=== PATIENT | female | born 1975 | race Caucasian/White ===

== ENCOUNTER 2017-04-01 23:51 | Emergency (ER) | END 2017-04-02 05:10 | disposition home or self-care (01) ==

== ENCOUNTER 2017-04-24 12:54 | Emergency (ER) | END 2017-04-24 20:40 | disposition home or self-care (01) ==

== ENCOUNTER 2017-08-02 17:16 | Emergency (ER) | END 2017-08-02 18:52 | disposition home or self-care (01) ==

== ENCOUNTER 2018-04-29 02:54 | Emergency (ER) | payer OTHER ==
[~2018-04-29] VITALS: Wt 103.2 kg
[~2018-04-29 02:54] MED LIST: ALBU8.5H8 INH; AZIT250T PO; BENZ-6 PO; CETI10CA PO; FERR27TA; FERR27TA PO; FLUT9.9S NASAL; IBUP-1542 PO; IBUP-1561 PO; PRED20TA PO; PREN1TAB49; PREN1TAB49 PO; PROM5SYR2 PO; PROP50TA2 PO
[2018-04-29] MEDS ORDERED: KETOROLAC 30 MG INJ IM STA (04:49)
[2018-04-29] MEDS ORDERED: predniSONE 20 MG TAB PO ONE (05:00)
[2018-04-29] MEDS ORDERED: SOD CHLORIDE 0.9% 1,000 ML IV STA ×2 (06:02→07:35)
[2018-04-29] MEDS ORDERED: MTF1000T PO ×2 (06:09→08:38)
[2018-04-29] MEDS ORDERED: INSULIN LISPRO 100 UNIT/ML VIAL SC ONE (06:30)
[2018-04-29] MEDS ORDERED: NYST1000 PO (08:37)
[2018-04-29] MEDS ORDERED: FLUCONAZOLE 150 MG TAB PO ONE (09:00)
[2018-04-29 09:16] VITALS: BP 112/57; PULSE 62; RESP 19
--- NOTE | 2018-04-30 19:04 | ERD ---
ER Documentation Chief Complaint Chief Complaint COUGH, ST, WEAKNESS X'S 2 WEEKS HPI 42-year-old female presents with cough, sore throat, and weakness for the last 2 weeks. Describes the cough is nonproductive. Denies any fevers, trismus, drooling, inability to swallow stridor,, difficulty breathing. Denies nausea, vomiting, diarrhea, dysuria. States that she has had some polyuria and polydipsia. Denies any treatments. Denies past medical history. Denies allergies. Denies medications. Denies surgeries. Denies alcohol, tobacco, drug use. Up to date on vaccines. ROS All systems reviewed and are negative except as per history of present illness. Medications Home Meds Active Scripts Metformin* (Glucophage*) 1,000 Mg Tablet, 1000 MG PO BID for diabetes, #60 TAB Prov:SUMMER YOUNG PA-C 04/29/18 Nystatin (Nystatin) 100,000 Unit/1 Ml Oral.susp, 2 ML PO QID, #60 ML Prov:SUMMER YOUNG PA-C 04/29/18 Promethazine HCl/Codeine (Prometh-Codein 6.25-10 mg/5 ml) 5 Ml Syrup, 5 ML PO QHS for 5 Days, #120 ML Prov:BLANE FOSTER MD 08/02/17 Ibuprofen* (Motrin*) 400 Mg Tab, 400 MG PO Q8 for 5 Days, #15 TAB Prov:BLANE FOSTER MD 08/02/17 Azithromycin* (Zithromax*) 250 Mg Tablet, 250 MG PO .ShadyPACK DIRECTED, #6 TAB TAKE 500 MG (2 TABS) THE FIRST DAY THEN 250 MG (1 TAB) DAYS 2-5 Prov:BLANE FOSTER MD 08/02/17 Fluticasone Propionate (Flonase Allergy Relief) 9.9 Ml [place].susp, 1 SPRAY NASAL DAILY, #1 BOTTLE TO EACH NOSTRIL Prov:DOUG HIGGINS PA-C 04/24/17 Prednisone* (Prednisone*) 20 Mg Tab, 40 MG PO DAILY for 4 Days, TAB Prov:DOUG HIGGINS PA-C 04/24/17 Benzonatate* (Tessalon Perle*) 100 Mg Capsule, 100 MG PO Q8H PRN for COUGH, #20 CAP Prov:DOUG HIGGINS PA-C 04/24/17 Azithromycin* (Zithromax*) 250 Mg Tablet, 250 MG PO .ShadyPACK DIRECTED, #6 TAB TAKE 500 MG (2 TABS) THE FIRST DAY THEN 250 MG (1 TAB) DAYS 2-5 Prov:SCHUYLER HAWLEY [employer] 04/02/17 Albuterol Sulfate* (Proair HFA*) 8.5 Gm Hfa.aer.ad, 2 PUFF INH Q4H PRN for WH EEZING AND SOB, #1 INHALER Prov:SCHUYLER HAWLEY [employer] 04/02/17 Cetirizine Hcl* (Zyrtec*) 10 Mg Capsule, 10 MG PO DAILY, #30 TAB.CHEW Prov:SCHUYLER HAWLEY [employer] 04/02/17 Ibuprofen* (Motrin*) 600 Mg Tab, 600 MG PO Q6H PRN for PAIN AND OR ELEVATED TEMP, #30 TAB Prov:SCHUYLER HAWLEY [employer] 04/02/17 Benzonatate* (Tessalon Perle*) 100 Mg Capsule, 100 MG PO Q8H PRN for COUGH, #20 CAP Prov:SCHUYLER HAWLEY [employer] 04/02/17 Reported Medications Vits W-Ca,Fe,Fa(<1MG) () 1 Tab Tablet, 1 04/26/11 Ferrous Sulfate (Iron) 1 Tab Tablet, 1 04/26/11 Ferrous Sulfate (Iron) 1 Tab Tablet, 1 TAB PO 04/26/11 Propylthiouracil* (Propylthiouracil*) 50 Mg Tablet, 50 MG PO 04/26/11 Vits W-Ca,Fe,Fa(<1MG) () 1 Tab Tablet, 1 TAB PO 04/26/11 Allergies Allergies: Coded Allergies: No Known Drug Allergies (Verified Allergy, Unknown, 04/24/17) PMhx/Soc History of Surgery: Yes (cholecystectomy) Anesthesia Reaction: No Hx Neurological Disorder: No Hx Respiratory Disorders: No Hx Cardiac Disorders: No Hx Psychiatric Problems: No Hx Miscellaneous Medical Probl: Yes (thyroid) Hx Alcohol Use: No Hx Substance Use: No Hx Tobacco Use: No Smoking Status: Never smoker FmHx Family History: No diabetes, No coronary disease, No other Physical Exam Vitals Vital Signs Date Temp Pulse Resp B/P (MAP) Pulse Ox O2 O2 Flow FiO2 Time Delivery Rate 04/29/18 97.8 62 19 112/57 96 Room Air 09:16 (75) 04/29/18 98.8 103 18 139/89 95 02:58 (106) Physical Exam Const: No acute distress Head: Atraumatic Eyes: Normal Conjunctiva ENT: Normal External Ears, Nose and Mouth. Tonsils are edematous as well and erythematous but airways patent and clear. No exudates are noted. Tongue is moderately edematous. Neck: Full range of motion. No meningismus. Resp: Clear to auscultation bilaterally Cardio: Regular rate and rhythm, no murmurs Abd: Soft, non tender, non distended. Normal bowel sounds Skin: No petechiae or rashes Back: No midline or flank tenderness Ext: No cyanosis, or edema Neur: Awake and alert Psych: Normal Mood and Affect Result Diagram: 04/29/18 0503 04/29/18 0503 Results 24 hrs Laboratory Tests Test 04/29/18 05:03 04/29/18 05:08 04/29/18 06:29 04/29/18 07:34 White Blood Count 5.8 10^3/ul Red Blood Count 4.99 10^6/ul Hemoglobin 14.3 g/dl Hematocrit 42.7 % Mean Corpuscular 85.6 fl Volume Mean Corpuscular 28.7 pg Hemoglobin Mean Corpuscular 33.5 g/dl Hemoglobin Concent Red Cell 12.3 % Distribution Width Platelet Count 274 10^3/UL Mean Platelet 9.9 fl Volume Immature 0.200 % Granulocytes % Neutrophils % 43.4 % Lymphocytes % 41.0 % Monocytes % 12.4 % Eosinophils % 1.5 % Basophils % 1.5 % Nucleated Red Blood 0.0 /100WBC Cells % Immature 0.010 10^3/ul Granulocytes # Neutrophils # 2.5 10^3/ul Lymphocytes # 2.4 10^3/ul Monocytes # 0.7 10^3/ul Eosinophils # 0.1 10^3/ul Basophils # 0.1 10^3/ul Nucleated Red Blood 0.0 10^3/ul Cells # Sodium Level 136 mmol/L Potassium Level 4.3 mmol/L Chloride Level 96 mmol/L Carbon Dioxide 25 mmol/L Level Anion Gap 15 Blood Urea Nitrogen 11 mg/dl Creatinine 0.56 mg/dl Est Glomerular > 60 mL/min Filtrat Rate mL/min Glucose Level 621 mg/dl Calcium Level 10.2 mg/dl Total Bilirubin 0.4 mg/dl Direct Bilirubin 0.00 mg/dl Indirect Bilirubin 0.4 mg/dl Aspartate Amino 31 IU/L Transf (AST/SGOT) Alanine 35 IU/L Aminotransferase (A LT/SGPT) Alkaline 176 IU/L Phosphatase Total Protein 9.0 g/dl Albumin 4.8 g/dl Globulin 4.20 g/dl Albumin/Globulin 1.14 Ratio Monoscreen Negative POC Beta HCG, NEGATIVE Qualitative Bedside Glucose 542 mg/dL 477 mg/dL Test 04/29/18 08:46 Bedside Glucose 342 mg/dL Current Medications Medications Dose Sig/Akanksha Start Time Status Last (Trade) Ordered Route PRN Stop Time Admin Dose Reason Admin Prednisone 60 mg ONCE ONCE 04/29/18 DC 04/29/18 (Prednisone) PO 05:00 05:29 04/29/18 05:01 Ketorolac 30 mg ONCE STAT 04/29/18 DC 04/29/18 Tromethamine IM 04:49 05:29 (Toradol) 04/29/18 04:50 Sodium 1,000 ml @ Q30M STAT 04/29/18 DC 04/29/18 Chloride 2,000 mls/hr IV 06:02 06:15 04/29/18 06:31 Insulin 14 unit ONCE ONCE 04/29/18 DC 04/29/18 Human SC 06:30 06:31 Lispro 04/29/18 06:31 (Humalog) Sodium 1,000 ml @ Q1H STAT 04/29/18 DC 04/29/18 Chloride 1,000 mls/hr IV 07:35 07:46 04/29/18 08:34 Fluconazole 150 mg ONCE ONCE 04/29/18 DC 04/29/18 (Diflucan) PO 09:00 09:01 04/29/18 09:01 Procedures/MDM 42-year-old female presents with cough, sore throat, and weakness for the last 2 weeks. Describes the cough is nonproductive. Denies any fevers, trismus, drool ing, inability to swallow stridor,, difficulty breathing. Denies nausea, vomiting, diarrhea, dysuria. States that she has had some polyuria and polydipsia. Denies any treatments. Denies past medical history. Denies allergies. Denies medications. Denies surgeries. Denies alcohol, tobacco, drug use. Up to date on vaccines. Influenza, rapid strep and Monospot were all negative. Due to patient's length of symptoms decision was made to perform CBC and CMP. Glucose came back severely elevated over 600. I discussed the case with Dr. Stephenson, my supervising physician and we agreed that the patient was not in DKA. Patient was given 2 L of fluids as well as [address] Stephenson said that once glucose goes below 300 patient can go home on 1000 mg of metformin twice daily. I informed the patient of her blood sugar and patient declined any knowledge of previous diabetes. At this point I signed the patient out to Cammy Young who to discharge the patient. Cammy also gave her Rx for nystatin to cover for possible thrush which may be causing her sore throat. Patient was given education that she needs to follow-up with primary care immediately in order to receive proper diabetes treatment. Patient discharged with strict ER precautions. Patient advised to follow up with PMD. All questions answered at discharge. Departure Diagnosis: Primary Impression: Hyperglycemia Condition: Stable Patient Instructions: Oral Thrush, DIABETES, General Info Referrals: [facility] YOU HAVE RECEIVED A MEDICAL SCREENING EXAM AND THE RESULTS INDICATE THAT YOU DO NOT HAVE A CONDITION THAT REQUIRES URGENT TREATMENT IN THE EMERGENCY DEPARTMENT. FURTHER EVALUATION AND TREATMENT OF YOUR CONDITION CAN WAIT UNTIL YOU ARE SEEN IN YOUR DOCTORS OFFICE WITHIN THE NEXT 1-2 DAYS. IT IS YOUR RESPONSIBILITY TO MAKE AN APPOINTMENT FOR FOLOW-UP CARE. IF YOU HAVE A PRIMARY DOCTOR --you should call your primary doctor and schedule an appointment IF YOU DO NOT HAVE A PRIMARY DOCTOR YOU CAN CALL OUR PHYSICIAN REFERRAL HOTLINE AT IF YOU CAN NOT AFFORD TO SEE A PHYSICIAN YOU CAN CHOSE FROM THE FOLLOWING [facility] [address] [place] [facility] [address] [facility] [address] [facility] [address] [facility] [facility] [address] [facility]. [facility] [address] Additional Instructions: FOLLOW UP WITH YOUR PRIMARY CARE PHYSICIAN TOMORROW.Return to this facility if you are not improving as expected. PREM RUIZ Apr 30, 2018 19:04
== END 2018-04-29 09:35 | disposition home or self-care (01) ==
LOC: FTE 02:54
DX: R73.9 Hyperglycemia, unspecified (principal)
CPT/HCPCS: 36415; 80053; 81025; 82962; 85025; 86308; 87400; 87880; 96360; 96361; 96372; J1815; J1885; J7030; J7512; Z7502; Z7610

== ENCOUNTER 2018-05-31 05:55 | Emergency (ER) | payer OTHER ==
[~2018-05-31] VITALS: Ht 166.4 cm; Wt 99.8 kg
[~2018-05-31 05:55] MED LIST changes: +MTF1000T PO; +NYST1000 PO
[2018-05-31 06:02] VITALS: Ht 166.4 cm; Wt 99.8 kg
[2018-05-31] MEDS ORDERED: KETOROLAC 15 MG INJ IM ONE (06:32)
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
[2018-05-31] MEDS ORDERED: IBUP-1542 PO (06:48)
[2018-05-31] MEDS ORDERED: ACETAMINOPHEN 325 MG TAB PO ONE (07:00)
[2018-05-31] MEDS ORDERED: INSULIN REGULAR (1 UNIT/ML) SYRINGE IV STA (07:03)
[2018-05-31] MEDS ORDERED: INSULIN REGULAR, HUMAN 100 UNIT/1 ML 3ML VIAL SC ONE ×2 (07:30→08:30)
[2018-05-31] MEDS ORDERED: SOD CHLORIDE 0.9% 1,000 ML IV ONE ×2 (07:30→08:30)
[2018-05-31 10:24] VITALS: BP 115/77; PULSE 89; RESP 18
== END 2018-05-31 11:29 | disposition home or self-care (01) ==
LOC: FTE 05:55 → E/R 11:29
DX: S00.03XA Contusion of scalp, initial encounter (principal); E11.65 Type 2 diabetes mellitus with hyperglycemia; Y04.8XXA Assault by other bodily force, initial encounter; Z79.84 Long term (current) use of oral hypoglycemic drugs
CPT/HCPCS: 81025; 82962; 96372; J1815; J1885; J7030; Z7502; Z7610